=== PATIENT | male | born 1960 | race Caucasian/White ===

== ENCOUNTER → 2019-08-02 | Outpatient (CLI) | payer MEDICARE, OTHER ==
[~2019-08-02] MED LIST: REGADENOSON 0.4 MG/5 ML SYRINGE IV ONE
--- NOTE | 2019-08-02 11:54 | NM ---
"EXAMINATION TYPE: NM stress lexiscan cardiolite DATE OF EXAM: 08/02/2019 COMPARISON: NONE HISTORY: Shortness of breath TECHNIQUE: After the intravenous administration of 9.7 mCi Tc 99m Sestamibi - Cardiolite resting SPE CT images acquired 55 minutes post injection. The patient received 0.4mg Lexiscan, 26.5 mCi Tc 99m Sestamibi - Stress images obtained [address] injection FINDINGS: Review of stress and rest SPECT images demonstrates a fixed defect of the anterior ventricular wall w ith reversible surrounding defects of the anterior septal wall. Moderate size defect with dyskinesis of the septal wall. There is an estimated left ventricular ejection fraction of 59 %. There is abnorm al TID measured at 1.29. IMPRESSION: Fixed defect of the anterior septal wall indicating prior infarct with dennis-infarct ischemia and abno rmal TID, which can be seen in balanced 3 vessel ischemia or cardiomyopathy. A [place] level critical message alert has been initiated for Carri Jett DO via the [place] [facility] 0 | Critical Results System on 08/02/2019 11:52 AM. This message alert has been sent to Carri Jett DO via the preferences provided by the clinician for the receipt of Radiology Critical Findings. [facility] ID [id number]."
--- NOTE | 2019-08-02 12:04 | EST ---
EXERCISE STRESS AGE: 59 SEX: M HT: 5'8" WT: 180 PROTOCOL: Lexiscan Cardiolite Scan HEART RATE REST: 102 BLOOD PRESSURE REST: 128/87 MAXIMUM HEART RATE ACHIEVED: 119 MAXIMUM BLOOD PRESSURE: 149/87 85% MPHR: 135 100% MPHR: 159 INDICATIONS: Short of breath CLINICAL INFORMATION: Baseline EKG shows sinus rhythm, normal axis, normal intervals. Patient was given intravenous Lexiscan as per protocol. Did not have chest pain or diagnostic ST-segment depression. CONCLUSION: 1. Negative stress test by EKG criteria. 2. Cardiolite portion of the stress test will be reported separately. MMODL / IJN: [id number] /
--- NOTE | 2019-08-02 12:41 | US ---
EXAMINATION TYPE: US renal artery duplex complet DATE OF EXAM: 08/02/2019 COMPARISON: Guardian states lesion right kidney visualized on at outside facility CLINICAL HISTORY: R06.02 shortness of breath. Lesion right kidney Limited exam, pt mentally challenged, unable to take breath in and hold it during exam, pt moving d uring exam/ Unable to visualize segmental arteries MEASUREMENTS: RENAL SIZE: Rt Kidney: 10.3 x 5.8 x 4.5 cm Lt Kidney: 10.8 x 5.6 x 4.9 cm RA/AO RATIO (< 3.5 ) Right: 1.3 Left: 1.8 RA VELOCITY ( < 180 cm/s) Right: 121 Left: 165 Unable to obtain RI bilaterally, unable to visualized segmental arteries due to pt unable to hold s till or hold breath during exam Cystic lesion medial, upper pole right kidney= 1.7 x 1.4 x 1.5 cm IMPRESSION: Limited exam due to above factors. No gross evidence of renal arterial stenosis sonograph ically. Simple appearing right renal cyst measuring 1.7 cm. No hydronephrosis of either kidney.
== END | disposition home or self-care (01) ==
LOC: RADNMMAIN 08:25 → EEVIPCON 08:25
PROVIDERS: ATTEND Family Medicine
DX: R06.02 Shortness of breath (principal); N28.1 Cyst of kidney, acquired
CPT/HCPCS: 93017; 93975; 78452; A9500; J2785

== ENCOUNTER → 2019-10-29 | Outpatient (CLI) | payer MEDICARE ==
[2019-10-29 12:35] LABS: HCT 44.6 % (39.0-53.0); HGB 15.2 gm/dL (13.0-17.5); MCH 29.7 pg (25.0-35.0); MCV 87.5 fL (80.0-100.0); Mean Platelet Volume 7.8; Platelet Count 282 k/uL (150-450); RDW 13.7 % (11.5-15.5); WBC 8.1 k/uL (3.8-10.6)
[2019-10-30 00:10] LABS: African American GFR (CKD) 93.7 (60.0-200.0); Anion Gap 7.4 mmol/L (4.00-12.00); Carbon Dioxide 23.6 mmol/L (21.6-31.8); Non-African American GFR(CKD) 80.9 (60.0-200.0); Potassium 4.7 mmol/L (3.5-5.5)
== END | disposition home or self-care (01) ==
LOC: LABWHC1 10:41
PROVIDERS: ATTEND Internal Medicine Interventional Cardiology
DX: Z11.59 Encounter for screening for other viral diseases (principal)
CPT/HCPCS: 80051; 82565; 84520; 85027; 36415; U0003

== ENCOUNTER 2019-11-01 10:52 | Inpatient (IN) | payer MEDICARE ==
[2019-10-29 15:14] VITALS: BMI 27.9
[~2019-11-01 10:52] MED LIST changes: +ALPRAZolam 0.25 MG TAB PO PRN; +ALPRAZolam 0.5 MG TAB PO PRN; +ASPIRIN 325 MG TAB PO STA; +NITROGLYCERIN SL TABS 0.4 MG TAB SUBLINGUAL PRN; -REGADENOSON 0.4 MG/5 ML SYRINGE IV ONE; +SODIUM CHLORIDE 0.9% 1,000 ML in EMPTY BAG 1 BAG IV ONE
[2019-11-01] MEDS ORDERED: SODIUM CHLORIDE 0.9% 1,000 ML IV ONE (11:40)
[2019-11-01] MEDS ORDERED: LIDOCAINE 1% INJ 10MG/ML (20 ML MDV) ONE (12:56)
[2019-11-01] MEDS ORDERED: MIDAZOLAM 2 MG/2 ML VIAL ONE (13:00)
[2019-11-01] MEDS ORDERED: PROPOFOL 10 MG/ML 20 ML VIAL IV ONE (13:00)
[2019-11-01] MEDS ORDERED: fentaNYL (PF) 50 MCG/ML 2 ML AMP ONE (13:00)
[2019-11-01] MEDS ORDERED: KETAMINE 10 MG/ML 20 ML VIAL ONE (13:00)
[2019-11-01] MEDS ORDERED: LIDOCAINE 1% INJ 10MG/ML (20 ML MDV) SQ ONE (13:32)
[2019-11-01] MEDS ORDERED: SODIUM CHLORIDE 0.9% 1,000 ML IV SCH (14:00)
[2019-11-01] MEDS ORDERED: RX INFO: IV CONTRAST WAS GIVEN 1 EACH MISC MISCELLANE PRN (14:00)
--- NOTE | 2019-11-01 19:58 | CC ---
CARDIAC CATHETERIZATION REPORT DATE OF SERVICE: November 01, 2019. PERFORMING PHYSICIAN: Jamshid Russ MD. PROCEDURE PERFORMED: Selective right and left coronary angiogram. INDICATION: This is a 59-year-old gentleman with hypertension and dyslipidemia who was seen recently in the office for further evaluation of intermittent episodes of chest discomfort. He was brought by a family member because the patient is slightly mentally challenged. A stress test was performed as an outpatient and that revealed fixed defect involving the anteroseptal wall of the LV with dennis-infarct ischemia and also evidence of transient ischemic dilatation of the left ventricle. Because of that, a heart catheterization was advised. APPROACH: Right common femoral artery. COMPLICATION: None. LEVEL OF SEDATION: Moderate with sedation length of 27 minutes. PROCEDURE DESCRIPTION: After obtaining informed consent, the patient was brought to the cardiac hatchery laborer. The right common femoral artery was cannulated using micropuncture technique and a micropuncture wire passed easily then I placed a 6-Sinhala sheath in the right common femoral artery. Selective right and left coronary angiogram performed using JR4 and JL4 catheters. Left heart catheterization was not performed. SELECTIVE CORONARY ANGIOGRAM: 1. The right coronary artery is a large caliber vessel. It is a dominant vessel. The RCA has mild disease in the midportion. In the proximal and distal portion appeared to be angiographically normal. It bifurcates distally into PDA and PLV branches both appeared to be angiographically normal. 2. The left main has mild disease distally as well as in its ostium. Bifurcates into LCX and LAD. 3. The LCX is a small to medium caliber vessel. It is a nondominant vessel. The circumflex itself appeared to be angiographically normal. 4. The LAD: The proximal LAD has a critical lesion appeared to be in the range of 99.9%. This is by the bifurcation of a large septal aircraft fueler branch. The mid LAD and distal LAD appeared to have mild disease only. The LAD gives rise into 2 small diagonal branches both appeared to be angiographically normal. HEMODYNAMICS: The aortic valve was not crossed. CONCLUSION: Critical disease involving the proximal LAD on the long segment, extends all the way to the left main coronary artery. POSTPROCEDURE MANAGEMENT: 1. Because the procedure was performed under general anesthesia and the patient was not given anti-platelet at the beginning, I decided to stop at this point. 2. Load the patient with dual anti-platelet therapy. 3. Assess the left ventricular systolic function. 4. Proceed with PCI tomorrow. MMODL / IJN: [id number] /
[2019-11-01] MEDS ORDERED: CLOPIDOGREL 75 MG TAB PO ONE (21:00)
[2019-11-01] MEDS: METOPROLOL TARTRATE 25 MG TAB PO SCH (22:24)
[2019-11-01] MEDS: ATORVASTATIN 80 MG TAB PO SCH (22:25)
[2019-11-01] MEDS: Mirabegron [Myrbetriq] PO SCH (23:25)
--- NOTE | 2019-11-02 08:00 | ECHOF ---
Referral Reason:CAD MEASUREMENTS -------- HEIGHT: 172.7 cm WEIGHT: 82.6 kg BP: IVSd: 1.1 cm (0.6 - 1.1) LVIDd: 4.4 cm (3.9 - 5.3) LVPWd: 1.4 cm (0.6 - 1.1) IVSs: 1.8 cm LVIDs: 2.4 cm LVPWs: 1.7 cm LAESV Index (A-L): 17.85 ml/m Ao Diam: 3.1 cm (2.0 - 3.7) AV Cusp: 1.9 cm (1.5 - 2.6) LA Diam: 2.2 cm (2.7 - 3.8) MV EXCURSION: 10.738 mm (> 18.000) MV EF SLOPE: 102 mm/s (70 - 150) EPSS: 0.3 cm MV E Dion: 0.83 m/s MV DecT: 216 ms MV A Dion: 0.76 m/s MV E/A Ratio: 1.09 AR PHT: 457 ms RAP: 15.00 mmHg RVSP: 36.68 mmHg TAPSE: 23.25 mm FINDINGS -------- Sinus rhythm. This was a technically adequate study. The left ventricular size is normal. There is mild concentric left ventricular hypertrophy. Overa ll left ventricular systolic function is normal with, an EF between 55 - 60 %. The right ventricle is normal in size. The left atrial size is normal. Normal LA size by volume 22+/-6 ml/m2. The right atrial size is normal. Interatrial and interventricular septum intact. The aortic valve is trileaflet and appears structurally normal. There is mild aortic regurgitation. The mitral valve is normal. Mild mitral regurgitation is present. The tricuspid valve appears structurally normal. Mild tricuspid regurgitation present. There is b orderline pulmonary hypertension. The right ventricular systolic pressure, as measured by Doppler, is 36.68mmHg. Trace/mild (physiologic) pulmonic regurgitation. The aortic root size is normal. The inferior vena cava is mildly dilated. There is no pericardial effusion. CONCLUSIONS -------- 1. Sinus rhythm. 2. This was a technically adequate study. 3. The left ventricular size is normal. 4. There is mild concentric left ventricular hypertrophy. 5. Overall left ventricular systolic function is normal with, an EF between 55 - 60 %. 6. The right ventricle is normal in size. 7. The left atrial size is normal. 8. Normal LA size by volume 22+/-6 ml/m2. 9. The right atrial size is normal. 10. Interatrial and interventricular septum intact. 11. The aortic valve is trileaflet and appears structurally normal. 12. There is mild aortic regurgitation. 13. The mitral valve is normal. 14. Mild mitral regurgitation is present. 15. The tricuspid valve appears structurally normal. 16. Mild tricuspid regurgitation present. 17. There is borderline pulmonary hypertension. 18. The right ventricular systolic pressure, as measured by Doppler, is 36.68mmHg. 19. Trace/mild (physiologic) pulmonic regurgitation. 20. The aortic root size is normal. 21. The inferior vena cava is mildly dilated. 22. There is no pericardial effusion. MANAGER MATERIAL: Chasidy Sykes RDCS
--- NOTE | 2019-11-02 08:46 | P.PN ---
Progress Note - Text Progress Note Date: 11/02/19 This is a 59-year-old gentleman with hypertension and dyslipidemia who was experiencing intermittent episodes of chest discomfort and underwent myocardial perfusion imaging stress test and that revealed anterior infarct with dennis- infarct ischemia involving the anterior wall. Because of that heart catheterization was advised. He underwent a heart catheterization yesterday and that revealed critical disease involving the mid LAD with severe disease involving the proximal LAD reach all the way to the left main coronary artery. The patient is mentally challenged and he is under the care of his niece. He was seen today, 11/02/2019. He did have some nausea and vomiting yesterday. I am ordering some blood work on him including CBC and BMP. He underwent an echocardiogram yesterday and that revealed an ejection fraction around 50-55%. I had a long discussion with the family regarding the next step. I am proceeding with PCI of the LAD with or without hemodynamic support. Meanwhile we will continue the current medical regimen. We will obtain a CBC and BMP this morning to check his kidney function as well as a hemoglobin.
[2019-11-02] MEDS: ASPIRIN 81 MG PO SCH (09:09)
[2019-11-02] MEDS: TAMSULOSIN 0.4 MG CAP.ER.24H PO SCH (09:09)
[2019-11-02] MEDS: METOPROLOL TARTRATE 25 MG TAB PO SCH ×2 (09:09→19:16)
[2019-11-02 09:18] LABS: Basophils % (A) 0 %; Eosinophils # (A) 0.1 k/uL (0-0.7); Eosinophils % (A) 1 %; HCT 43.7 % (39.0-53.0); HGB 14.3 gm/dL (13.0-17.5); Lymphocytes # (A) 1.3 k/uL (1.0-4.8); Lymphocytes % (A) 14 %; MCH 28.3 pg (25.0-35.0); MCHC 32.7 g/dL (31.0-37.0); MCV 86.7 fL (80.0-100.0); Mean Platelet Volume 7.1; Monocytes # (A) 0.5 k/uL (0-1.0); Monocytes % (A) 6 %; Neutrophils # (A) 6.9 k/uL (1.3-7.7); Neutrophils % (A) 77 %; Platelet Count 258 k/uL (150-450); RBC 5.04 m/uL (4.30-5.90); RDW 13.6 % (11.5-15.5)
[2019-11-02 09:37] LABS: African American GFR (CKD) >90 (>60 ml/min/1.73 sqM); Anion Gap 4 mmol/L; Blood Urea Nitrogen 10 mg/dL (9-20); Calcium 8.8 mg/dL (8.4-10.2); Carbon Dioxide 24 mmol/L (22-30); Chloride 109 mmol/L (98-107); Glucose 110 mg/dL (74-99); Non-African American GFR(CKD) >90 (>60 ml/min/1.73 sqM); Potassium 4.3 mmol/L (3.5-5.1); Sodium 137 mmol/L (137-145)
[2019-11-02] MEDS ORDERED: fentaNYL (PF) 50 MCG/ML 2 ML AMP ONE (12:51)
[2019-11-02] MEDS ORDERED: KETAMINE 10 MG/ML 20 ML VIAL ONE (12:51)
[2019-11-02] MEDS ORDERED: PROPOFOL 10 MG/ML 20 ML VIAL IV ONE (12:51)
[2019-11-02] MEDS ORDERED: MIDAZOLAM 2 MG/2 ML VIAL ONE (12:51)
[2019-11-02] MEDS ORDERED: LIDOCAINE 1% INJ 10MG/ML (20 ML MDV) ONE (13:04)
[2019-11-02] MEDS ORDERED: HEPARIN SODIUM 1,000 UN/ML (10ML VL) ONE (13:04)
[2019-11-02] MEDS ORDERED: LIDOCAINE 1% INJ 10MG/ML (20 ML MDV) SQ ONE (13:09)
[2019-11-02] MEDS ORDERED: SODIUM CHLORIDE 0.9% 1,000 ML IV ONE (13:12)
[2019-11-02] MEDS ORDERED: NITROGLYCERIN 1000MCG/10ML SYRINGE INTRACORON ONE (13:56)
[2019-11-02] MEDS ORDERED: niCARdipine Syringe (1,000 mcg/10 mL) INTRACORON ONE (13:56)
[2019-11-02] MEDS ORDERED: IOPAMIDOL-370 125ML BTL INJ ONE (14:07)
[2019-11-02] MEDS ORDERED: CLOPIDOGREL 75 MG TAB ONE (14:19)
[2019-11-02] MEDS ORDERED: ATROPINE SULFATE 0.1 MG/ML 10ML SYRINGE IV PRN (14:23)
[2019-11-02] MEDS ORDERED: RX INFO: IV CONTRAST WAS GIVEN 1 EACH MISC MISCELLANE PRN (14:23)
[2019-11-02] MEDS ORDERED: MAG HYDROX/AL HYDROX/SIMETH 30 ML CUP PO PRN (14:23)
[2019-11-02] MEDS ORDERED: NITROGLYCERIN SL TABS 0.4 MG TAB SUBLINGUAL PRN (14:23)
[2019-11-02] MEDS ORDERED: ZOLPIDEM 5 MG TAB PO PRN (14:23)
[2019-11-02] MEDS ORDERED: SODIUM CHLORIDE 0.9% 1,000 ML IV SCH (14:30)
[2019-11-02] MEDS ORDERED: CLOPIDOGREL 75 MG TAB PO ONE (14:30)
[2019-11-02] MEDS ORDERED: LORazepam 2 MG/ML INJ IV PRN (14:31)
[2019-11-02 15:28] LABS: Glucose,Whole Blood 101 mg/dL (75-99)
--- NOTE | 2019-11-02 16:32 | LTR ---
November 02, 2019 To: Dr. Carri Jett Re: Ravi Macario (56) Dear Dr. Jett: Mr. Ravi Macario underwent today successful stenting of the left anterior descending artery with an excellent angiographic result and without any complication. I did forward you a copy of the procedure. I want to thank you for allowing us to participate in his care. Please do not hesitate to call with any questions or concerns. Sincerely, Jamshid Russ M.D. ARIANA / JUANJOSE: [id number] /
--- NOTE | 2019-11-02 16:41 | PTCA ---
PERCUTANEOUSTRANS CORORONARY ANGIOGRAPHY PERFORMING PHYSICIAN: Jamshid Russ MD. PROCEDURE PERFORMED: 1. Successful stenting of the proximal left anterior descending artery using 2.5 x 18 mm Xience ASHLI with an excellent angiographic results and reduction of stenosis from 100% to 0%. 2. Placement of Impella in the left ventricle. 3. Bilateral common femoral artery angiogram. INDICATION: This is a pleasant 59-year-old gentleman who was slightly mentally challenged with hypertension and dyslipidemia who was experiencing chest discomfort and underwent myocardial perfusion imaging stress test and that revealed an anterior ischemia and because of that, a heart catheterization was advised. APPROACH: Right common femoral artery and left common femoral artery. COMPLICATION: None. LEVEL OF SEDATION: Moderate with sedation length of 71 minutes. PROCEDURE DESCRIPTION: After obtaining an informed consent, the patient was brought to the cardiac recyclable materials sorter. The right and left common femoral arteries were cannulated using micropuncture technique, then I placed at the right groin. A 13-Kyrgyz sheath and in the left groin, a 6-Kyrgyz sheath. I did a pre close to the right groin using the Perclose device at 10 and 2 o'clock. At that point, anticoagulation was initiated using heparin and the patient was given a weight-based heparin with continuous ACT monitoring throughout the procedure. Subsequently, I did engage the left main using JL3.5 guide. I crossed the chronic lesion in the proximal LAD using a 1.4 whisper wire with the backup support of 9 degree super Cross catheter. Subsequently I did balloon angioplasty using 1.5 mm balloon, then 2 0 mm balloon. After that, I deployed 2.5 x 18 mm Xience ASHLI where the stent was positioned under fluoroscopy guidance and deployed under 14 atmospheres for 20 seconds with the following angiogram showed excellent angiographic results and the procedure was completed without any complication. POSTPROCEDURE MANAGEMENT: 1. Dual anti-platelet therapy. 2. Risk factor modifications. 3. Follow up with the patient. MMODL / IJN: [id number] /
[2019-11-02] MEDS: ATORVASTATIN 80 MG TAB PO SCH (21:51)
[2019-11-02] MEDS: Mirabegron [Myrbetriq] PO SCH (21:51)
[2019-11-03 04:26] VITALS: TEMP 99
[2019-11-03 05:23] LABS: Basophils % (A) 0 %; Eosinophils # (A) 0.2 k/uL (0-0.7); Eosinophils % (A) 2 %; HCT 43.1 % (39.0-53.0); HGB 13.8 gm/dL (13.0-17.5); Lymphocytes # (A) 1.4 k/uL (1.0-4.8); Lymphocytes % (A) 14 %; MCH 28.1 pg (25.0-35.0); MCHC 32.1 g/dL (31.0-37.0); MCV 87.5 fL (80.0-100.0); Mean Platelet Volume 7.3; Monocytes # (A) 0.7 k/uL (0-1.0); Monocytes % (A) 7 %; Neutrophils # (A) 7.6 k/uL (1.3-7.7); Neutrophils % (A) 75 %; Platelet Count 251 k/uL (150-450); RBC 4.92 m/uL (4.30-5.90); RDW 13.6 % (11.5-15.5); WBC 10.1 k/uL (3.8-10.6)
[2019-11-03 05:43] LABS: African American GFR (CKD) >90 (>60 ml/min/1.73 sqM); Anion Gap 7 mmol/L; Blood Urea Nitrogen 9 mg/dL (9-20); Carbon Dioxide 22 mmol/L (22-30); Chloride 106 mmol/L (98-107); Glucose 112 mg/dL (74-99); Non-African American GFR(CKD) >90 (>60 ml/min/1.73 sqM); Potassium 4.3 mmol/L (3.5-5.1); Sodium 135 mmol/L (137-145)
[2019-11-03] MEDS: TAMSULOSIN 0.4 MG CAP.ER.24H PO SCH (07:55)
[2019-11-03] MEDS: METOPROLOL TARTRATE 25 MG TAB PO SCH (07:55)
[2019-11-03] MEDS: ASPIRIN 81 MG PO SCH (07:55)
--- NOTE | 2019-11-03 08:28 | P.DS ---
Providers Date of admission: 11/01/19 14:23 11/01/2019 Attending physician: Jamshid Russ Consults: 11/02/19 14:23 Consult Physician Routine Consulting Provider: [facility] Consult Reason/Comments: Post Interventional patient Do you want consulting provider notified?: Already Contacted Primary care physician: Stated None Hospital Course: This is a pleasant 59-year-old gentleman who was experiencing symptoms of chest discomfort and underwent myocardial perfusion imaging stress is and that revealed an anterior ischemia. Subsequently underwent a heart catheterization which revealed critical disease involving the LAD. He underwent successful stenting of the LAD with adjunctive use of Impella. The patient was seen this morning. He seems to be asymptomatic from the cardiovascular standpoint of view. Both groins are soft and nontender. The patient is going to be discharged home on dual antiplatelet therapy along with a statin and I'll follow-up with the patient next week in the office Plan - Discharge Summary Discharge Rx Participant: No New Discharge Prescriptions: New Atorvastatin [Lipitor] 80 mg PO HS #90 tab Clopidogrel [Plavix] 75 mg PO DAILY #90 tab Continue Tamsulosin [Flomax] 0.4 mg PO DAILY Metoprolol Tartrate [Lopressor] 25 mg PO BID Mirabegron [Myrbetriq] 25 mg PO HS Aspirin [Adult Low Dose Aspirin EC] 81 mg PO DAILY Discharge Medication List Aspirin [Adult Low Dose Aspirin EC] 81 mg PO DAILY 08/13/19 [History] Metoprolol Tartrate [Lopressor] 25 mg PO BID 08/13/19 [History] Mirabegron [Myrbetriq] 25 mg PO HS 08/13/19 [History] Tamsulosin [Flomax] 0.4 mg PO DAILY 08/13/19 [History] Atorvastatin [Lipitor] 80 mg PO HS #90 tab 11/03/19 [Rx] Clopidogrel [Plavix] 75 mg PO DAILY #90 tab 11/03/19 [Rx] Follow up Appointment(s)/Referral(s): Jamshid Russ MD [STAFF PHYSICIAN] - 1 Week
[2019-11-03 09:18] VITALS: BP 155/106; PULSE 93; RESP 14
[2019-11-03] MEDS ORDERED: CLOPIDOGREL 75 MG TAB PO SCH (12:00)
--- NOTE | 2019-11-04 12:35 | CDI ---
Documentation Clarification Form Date: 11/04/19 From: Lindy Becker Phone: If you have a question about this query, please contact Marleny Avila, Cadastral Engineer at [phone] between 8am and 5pm. Admit Date: 11/01/19 Discharge Date:11/03/19 Patient Name: Ravi Macario Visit Number: [id number] ATTENTION: The Clinical Documentation Specialists (CDI) and [facility] Coding Staff appreciate your assistance in clarifying documentation. Please respond to the clarification below the line at the bottom and electronically sign. The CDI & [facility] Coding staff will review the response and follow-up if needed. Please note: Queries are made part of the Legal Health Record. If you have any questions, please contact the author of this message via ITS. Dear Dr. Russ Anterior infarct with dennis-infarct ischemia involving the anterior wall is documented in the cath report and 11/01 progress note. Patient History/Risk Factors: CAD, hyperlipidemia Clinical Indicators: Chest discomfort Troponin: Not tested this admit EKG Results: Not done Treatment: Stent of the proximal left anterior descending artery In order to capture the severity of condition and necessary documentation specificity, please clarify: Type of Infarction: MS Ruled Out STEMI NSTEMI Acute Ischemia Unable to determine Other Condition, please specify Acute Ischemia MTDD
== END 2019-11-03 10:50 | disposition home or self-care (01) | DRG 215 ==
LOC: CATHCVL 10:52 → 3SCARD 14:04 → 2SICU 14:23 → CATHCVL 14:23 → 2SICU 11-02 14:53 → 3SCARD 11-02 14:53 → 2SICU 11-02 15:55 → CATHCVL 11-02 15:55 → 2SICU 11-02 16:16
PROVIDERS: ADMIT Internal Medicine Interventional Cardiology; ATTEND Internal Medicine Interventional Cardiology
PROC: B2111ZZ Fluoroscopy of Multiple Coronary Arteries using Low Osmolar Contrast (ICD-10-PCS; 2019-11-01)
PROC: 5A0221D Assistance with Cardiac Output using Impeller Pump, Continuous (ICD-10-PCS; principal; 2019-11-02 12:00)
PROC: 02HA3RJ Insertion of Short-term External Heart Assist System into Heart, Intraoperative, Percutaneous Approach (ICD-10-PCS; principal; 2019-11-02 12:00)
PROC: 027034Z Dilation of Coronary Artery, One Artery with Drug-eluting Intraluminal Device, Percutaneous Approach (ICD-10-PCS; principal; 2019-11-02 12:00)
DX: I24.9 Acute ischemic heart disease, unspecified (principal); I25.10 Atherosclerotic heart disease of native coronary artery without angina pectoris; E78.5 Hyperlipidemia, unspecified; I10 Essential (primary) hypertension; F81.9 Developmental disorder of scholastic skills, unspecified; E78.00 Pure hypercholesterolemia, unspecified; Z79.82 Long term (current) use of aspirin; Z79.899 Other long term (current) drug therapy; I73.9 Peripheral vascular disease, unspecified; Z82.49 Family history of ischemic heart disease and other diseases of the circulatory system
CPT/HCPCS: 80048; 85025; 93306; 93454